=== PATIENT | female | born 1965 | race Caucasian/White ===

== ENCOUNTER → 2017-11-28 | Outpatient (CLI) | payer OTHER ==
[~2017-11-28] MED LIST: CARDIZEM LA180 MG PO; NKHM
== END | disposition home or self-care (01) ==
LOC: US 09:19
DX: Z13.6 Encounter for screening for cardiovascular disorders (principal); R10.10 Upper abdominal pain, unspecified

== ENCOUNTER → 2018-01-18 | Outpatient (CLI) | payer OTHER | END | disposition home or self-care (01) | LOC: US 07:11 | DX: K76.89 Other specified diseases of liver (principal) ==

== ENCOUNTER → 2018-03-29 | Day surgery (SDC) | payer OTHER ==
[~2018-03-29] VITALS: Ht 165.1 cm; Wt 75.7 kg
[~2018-03-29] MED LIST changes: +TYLENOL325 M1 PO; +ZANTAC 150150 MG PO
--- NOTE | ~2018-03-29 | O ---
[place], [place] OPERATIVE NOTE NAME: LORY WINSLOW UNIT #: [id number] ROOM: DOCTOR: SANA RIVERA,[facility]FORM[facility]LY [facility] B[facility] [birth year] DOS: 03/29/2018 GASTROENDOSCOPIC REPORT INDICATION: This is a 53-year-old patient who presented with chief complaint of epigastric distress, heartburn, on omeprazole 20 mg every day, and also colonic screening. ALLERGIES: No known medication. FAMILY HISTORY: Noncontributory. PAST SURGICAL HISTORY: Vein stripping, left inguinal hernia, tonsillectomy, and hysterectomy. PAST MEDICAL HISTORY: Gastritis. Sonographic study of the gallbladder has been negative except a small cyst of the liver. SOCIAL HISTORY: Nonsmoker, nonalcohol consumer. PROCEDURE: Today's procedure part of investigation is colonoscopy for screening as well EGD for dyspepsia and heartburn. REPORT: After putting the patient in left lateral position and application of lubricant to the scope, the scope was introduced. Thereafter, under direct visualization, advanced through the length of esophagus without difficulty. Small hiatal hernia about a 2.5 cm was identified. Gastric pouch was entered. Gastritis of mild degree seen. Antral biopsy obtained. Duodenal bulb, second and third part within normal limit. Air was suctioned out. The patient was gradually extubated and tolerated the procedure well. IMPRESSION: Hiatal hernia and gastritis, status post biopsy. PLAN AND DISCUSSION: We are going to continue with omeprazole 20 mg daily. Antireflux with elevation of the head of the bed 6-inch all time. Gaviscon as antacid of choice. Plan and discussion further, I am going to proceed with colonoscopic evaluation today. GASTROENDOSCOPIC REPORT INDICATIONS: The patient is a 53-year-old patient who has presented for colonic screening. PROCEDURE: Today's procedure part of investigation is colonoscopy plus photographic series. PREMEDICATION: Propofol. SCOPE: Olympus forward-viewing colonoscope 10L video. [place], [place] OPERATIVE NOTE NAME: LORY WINSLOW UNIT #: [id number] ROOM: DOCTOR: SANA RIVERA,[facility] BIRTHDATE: [birth year] REPORT: After putting the patient in left lateral position and application of lubricant to the scope, the scope was introduced. Thereafter, under direct visualization, advanced through the length of colon without difficulty. Diverticulosis of sigmoid colon was appreciated. Base of the cecum explored, appendiceal orifice identified, ileocecal valve identified. Air was suctioned out gradually from ascending, transverse, and descending colon. The patient extubated and tolerated the procedure well. IMPRESSION: Diverticulosis, otherwise no acute colonic pathology. PLAN: High fiber fruit diet. ACTIVITY: Ad saranya. FOLLOWUP: Routine followup of the patient in the office with you and p.r.n. visit with [facility]. Follow-up colonoscopy in 10 years unless patient has symptoms for which follow-up should be sooner. I thank you very much indeed for your kind referral. DAMEON HOOD MD CM:OPRECORD:OPERATIVE NOTE [id number] DAMEON HOOD MD 04/10/18 1740 interface
[2018-03-29 10:34] VITALS: BP 159/93
[2018-03-29 11:45] VITALS: BP 110/68
[2018-03-29 12:00] VITALS: BP 115/63
[2018-03-29 12:15] VITALS: BP 122/66
== END | disposition home or self-care (01) ==
LOC: SDC 03-23 14:00
DX: Z12.11 Encounter for screening for malignant neoplasm of colon (principal); K57.30 Diverticulosis of large intestine without perforation or abscess without bleeding; K29.50 Unspecified chronic gastritis without bleeding; K44.9 Diaphragmatic hernia without obstruction or gangrene; K21.9 Gastro-esophageal reflux disease without esophagitis; Z90.710 Acquired absence of both cervix and uterus; Z98.890 Other specified postprocedural states; Z82.49 Family history of ischemic heart disease and other diseases of the circulatory system; Z79.899 Other long term (current) drug therapy

== ENCOUNTER 2019-07-26 04:44 | Emergency (ER) | payer OTHER ==
[~2019-07-26] VITALS: Ht 165.1 cm; Wt 77.1 kg
[2019-07-26 05:15] LABS: BASO % 0.5 % (0.0-1.0); EOS % 0.2 % (1.0-4.0); HEMATOCRIT 46.5 % (37.0-47.0); HEMOGLOBIN 15.6 g/dl (12.0-16.0); LYMPH # 1.4 10*3/uL (1.3-4.4); LYMPH % 15.9 % (27.0-41.0); MEAN CELL VOLUME 88.2 fl (81.0-99.0); MEAN CORPUSCULAR HGB 29.6 pg (27.0-31.0); MEAN CORPUSCULAR HGB CONC 33.5 g/dl (33.0-37.0); MEAN PLATELET VOLUME 9.7 fl (9.6-12.3); MONO # 0.5 10*3/uL (0.1-1.0); MONO % 5.9 % (3.0-9.0); NEUT # 6.8 10*3/uL (2.3-7.9); NEUT % 77.3 % (47.0-73.0); PLATELET COUNT AUTOMATED 314 10*3/uL (130-400); RED BLOOD COUNT 5.27 10*6/uL (4.10-5.10); RED CELL DISTRI WIDTH 12.4 % (0-14.5); WHITE BLOOD COUNT 8.7 10*3/uL (4.8-10.8)
[2019-07-26 05:34] LABS: ALKALINE PHOSPHATASE 73 U/L (45-117); BUN 14 mg/dl (7-24); CHLORIDE 107 mmol/L (98-107); CREATININE 1.14 mg/dL (0.55-1.02); LIPASE 172 U/L (73-393); POTASSIUM 3.3 mmol/L (3.5-5.1); SGOT/AST 11 IU/L (3-35); SGPT/ALT 19 U/L (12-78); SODIUM 137 mmol/L (136-145); TOTAL PROTEIN 7.9 gm/dL (6.4-8.2)
[2019-07-26 05:46] LABS: TROPONIN I < 0.015 ng/ml (<0.045)
[2019-07-26 06:08] LABS: BILIRUBIN NEGATIVE (NEGATIVE); BLOOD 2+ (NEGATIVE); CLARITY SL CLOUDY (CLEAR); COLOR YELLOW (YELLOW); GLUCOSE NEGATIVE (NEGATIVE); KETONE NEGATIVE (NEGATIVE); LEUKO ESTERASE NEGATIVE (NEGATIVE); NITRITE NEGATIVE (NEGATIVE); PH 5.5 (5.0-9.0); UROBILINOGEN 0.2 E.U./dl (0.2-1.0)
[2019-07-26 06:36] LABS: BACTERIA TRACE; MUCOUS TRACE; WBC 0-2 wbc/hpf (0-5)
[2019-07-26] MEDS ORDERED: 'CLONIDINE0.1 MG PO (06:54)
== END 2019-07-26 06:54 | disposition home or self-care (01) ==
LOC: ED 04:44
PROVIDERS: Emergency Medicine Emergency Medical Services
DX: G43.909 Migraine, unspecified, not intractable, without status migrainosus (principal); I10 Essential (primary) hypertension; R11.2 Nausea with vomiting, unspecified; Z79.899 Other long term (current) drug therapy; Z90.710 Acquired absence of both cervix and uterus

== ENCOUNTER → 2019-08-10 | Outpatient (CLI) | payer OTHER ==
[~2019-08-10] MED LIST changes: +'CLONIDINE0.1 MG PO
[2019-08-10 09:53] LABS: HEMATOCRIT 46.5 % (37.0-47.0); HEMOGLOBIN 15.6 g/dl (12.0-16.0); MEAN CELL VOLUME 87.1 fl (81.0-99.0); MEAN CORPUSCULAR HGB 29.2 pg (27.0-31.0); MEAN CORPUSCULAR HGB CONC 33.5 g/dl (33.0-37.0); MEAN PLATELET VOLUME 9.1 fl (9.6-12.3); RED BLOOD COUNT 5.34 10*6/uL (4.10-5.10); RED CELL DISTRI WIDTH 12.4 % (0-14.5); WHITE BLOOD COUNT 6.7 10*3/uL (4.8-10.8)
[2019-08-10 10:24] LABS: ALKALINE PHOSPHATASE 67 U/L (45-117); BUN 15 mg/dl (7-24); CHLORIDE 103 mmol/L (98-107); CHOLESTEROL 269 mg/dL (<200); HDL CHOLESTEROL 36 mg/dl (40-60); LDL CHOLESTEROL 177 mg/dL (9-159); POTASSIUM 4.2 mmol/L (3.5-5.1); SGOT/AST 15 IU/L (3-35); SGPT/ALT 22 U/L (12-78); SODIUM 137 mmol/L (136-145); TOTAL PROTEIN 7.7 gm/dL (6.4-8.2); TRIGLYCERIDES 281 mg/dl (<150); VLDL CHOLESTEROL 56 mg/dL (6-40)
== END | disposition home or self-care (01) ==
LOC: LAB 09:27
PROVIDERS: Family Medicine
DX: I10 Essential (primary) hypertension (principal); E78.00 Pure hypercholesterolemia, unspecified; K21.9 Gastro-esophageal reflux disease without esophagitis; G43.901 Migraine, unspecified, not intractable, with status migrainosus; E55.9 Vitamin D deficiency, unspecified; Z79.899 Other long term (current) drug therapy

== ENCOUNTER → 2020-12-12 | Outpatient (CLI) | payer BC | END | disposition home or self-care (01) | LOC: MRI 10:55 | PROVIDERS: ATTEND Family Medicine | DX: G43.909 Migraine, unspecified, not intractable, without status migrainosus (principal); R20.0 Anesthesia of skin ==

== ENCOUNTER → 2024-03-08 | Outpatient (CLI) | payer BC ==
[2024-03-08 13:30] LABS: LIPASE 65 U/L (12-53)
== END | disposition home or self-care (01) ==
LOC: LAB 12:39
PROVIDERS: ATTEND Family Medicine
DX: R10.9 Unspecified abdominal pain (principal)